=== PATIENT | male | born 1975 | race Caucasian/White ===

== ENCOUNTER 2017-09-18 22:19 | Emergency (ER) | payer OTHER ==
--- NOTE | 2017-09-18 22:51 | RAD ---
PORTABLE CHEST: 09/18/17 HISTORY: Chest pain. Heart size appears slightly enlarged. Mediastinal structures are unremarkable. The lungs are clear of any infiltrative process. Density along the right chest is felt to be related to soft tissue shadow probably related to patient's arm. IMPRESSION: Borderline heart size. No definite acute process. Questionable slight blunting to the right costophre jennifer angle may just be related to overlying soft tissue. POS: [facility]
[2017-09-18 23:00] LABS: #Eosinphils 0.1 thou/uL (0.0-0.7); #Lymphocytes 1.8 thou/uL (1.20-3.40); #Monocytes 0.9 thou/uL (0.11-0.59); #Neutrophils 8.1 thou/uL (1.40-6.50); %Basophils 0.3 % (0.0-1.0); %Eosinophils 0.8 % (0.0-10.0); %Lymphocytes 16.7 % (21.0-51.0); %Monocytes 8.2 % (0.0-10.0); Hemoglobin 16.4 g/dL (14.0-18.0); Mean Corpuscular HGB CONC 33.9 g/dL (32.0-36.0); Mean Corpuscular Hemoglobin 31.8 pg (27.0-31.0); Mean Corpuscular Volume 93.7 fl (80.0-94.0); Mean Platelet Volume 6.6 fL (7.4-10.4); Platelet Count 292 thou/uL (130-400); RBC Distribution Width 11.9 % (11.5-14.5); Red Blood Cell (RBC) Count 5.15 mill/uL (4.70-6.10)
[2017-09-18 23:26] LABS: ALT (SGPT) 15 U/L (8-55); AST (SGOT) 16 U/L (5-34); Albumin 4.4 g/dL (3.5-5.0); Alkaline Phosphatase 79 U/L (40-150); Anion Gap 14 mmol/L (10-20); BUN (Urea Nitrogen) 10 mg/dL (8.9-20.6); Bilirubin, Total 1.4 mg/dL (0.2-1.2); CK (CPK) 80 U/L (30-200); Calc. Creatinine Clearance 0 mL/min (70-130); Calcium 9.5 mg/dL (7.8-10.44); Carbon Dioxide 22 mmol/L (22-29); Chloride 104 mmol/L (98-107); Estimated GFR-MDRD Greater than 90; Globulin 3.7 g/dL (2.4-3.5); Glucose 97 mg/dL (70-105); Lipase 68 U/L (8-78); Potassium 3.8 mmol/L (3.5-5.1); Protein, Total 8.1 g/dL (6.0-8.3); Sodium 136 mmol/L (136-145)
[2017-09-18 23:30] LABS: CKMB 0.5 ng/mL (0-6.6); Troponin I 0.017 ng/mL (< 0.028)
[2017-09-18] MEDS ORDERED: Ketorolac Tromethamine 30 MG/ML VIAL ONE (23:35)
--- NOTE | 2017-09-20 13:28 | EKG ---
Test Reason : Blood Pressure : / mmHG Vent. Rate : 094 BPM Atrial Rate : 094 BPM P-R Int : 142 ms QRS Dur : 086 ms QT Int : 336 ms P-R-T Axes : 030 100 026 degrees QTc Int : 420 ms Normal sinus rhythm Rightward axis Low voltage QRS Borderline ECG Confirmed by MK SMITH [id number]), editor [employer] journal RAMON SULLIVAN ([id number]) on 09/20/2017 1:27:37 PM Referred By: Confirmed By:MK SMITH
== END 2017-09-19 01:15 ==
LOC: EEVIPCON 22:19 → ERS 22:19
DX: R07.89 Other chest pain (principal); Z87.891 Personal history of nicotine dependence
CPT/HCPCS: 36415; 71010; 80053; 82550; 82553; 83690; 83880; 84484; 85025; 85379; 87804; 93005; 96374; J1885